=== PATIENT | female | born 1990 | race Caucasian/White ===

== ENCOUNTER → 2019-02-23 | Outpatient (CLI) | payer OTHER | END | disposition home or self-care (01) | LOC: LAB 18:49 → LAB SHORT 18:49 | DX: Z34.00 Encounter for supervision of normal first pregnancy, unspecified trimester (principal) | CPT/HCPCS: 87081; 87653 ==

== ENCOUNTER 2019-03-23 05:08 | Inpatient (IN) | payer OTHER, BC ==
[~2019-03-23] VITALS: Ht 160 cm; Wt 0.2 kg
[2019-03-23] MEDS ORDERED: Verotin-Gr Cap1 EACH PO (05:32)
[2019-03-23 05:45] LABS: BASOPHILS ABSOLUTE AUTO 0.03 K/mm3 (0.00-0.23); BASOPHILS PERCENT AUTO 0 % (0-2); EOSINOPHILS ABSOLUTE AUTO 0.08 K/mm3 (0.00-0.68); EOSINOPHILS PERCENT AUTO 1 % (0-6); Hematocrit 37.8 % (33.0-51.0); Hemoglobin 12.4 g/dL (11.5-16.0); IMMATURE GRAN ABSOLUTE AUTO 0.08 K/mm3 (0.00-0.10); IMMATURE GRAN PERCENT AUTO 1 % (0-1); LYMPHOCYTES ABSOLUTE AUTO 2.37 K/mm3 (0.84-5.20); LYMPHOCYTES PERCENT AUTO 25 % (21-46); MONOCYTES ABSOLUTE AUTO 0.89 K/mm3 (0.16-1.47); MONOCYTES PERCENT AUTO 10 % (4-13); Mean Corpuscular HGB Conc 32.8 g/dL (31.5-36.5); Mean Corpuscular Volume 92 fL (80-100); Mean Platelet Volume 11.3 fL (9.1-12.4); NEUTROPHILS ABSOLUTE AUTO 5.88 K/mm3 (1.96-9.15); NEUTROPHILS PERCENT AUTO 63 % (41-73); Platelet Count 188 K/mm3 (150-400); RDW Coefficient Variation 12.8 % (11.7-14.2); RDW Standard Deviation 41.6 fL (35.1-46.3); Red Blood Cell Count 4.13 M/mm3 (3.80-5.20); White Blood Cell Count 9.33 K/mm3 (4.00-11.30)
--- NOTE | 2019-03-23 16:34 | NUR ---
EPIDURAL OFF, TOTAL 41.1 DELIVERED, 208 LTC FF AT [facility], DR REED DONE WITH REPAIR, SCANT BLEEDING
--- NOTE | 2019-03-23 16:52 | NUR ---
PT. GAVE PRINT SHOP ASSISTANT PERMISSION TO PROVIDE CARE FOR THE DAY.
--- NOTE | 2019-03-23 17:56 | NUR ---
CONSULT OF . HAVING DIFFICULTY WITH FIRST LATCHING AFTER . ALERT AND ROOTING. MOMS BREASTS ARE FIRM BUT NIPPLE DOES ERECT SOME WITH STIMULATION. VERY SMALL DROP OF COLOSTRUM EXPRESSED. MOUTH OF BABY EVALUATED, POOR SUCK COORDINATION, PROMINENT BITING, POSTERIOR TONGUE ELEVATED, HOLDS MOUTH NARROW BUT IS ABLE TO WIDE OPEN WITH ROOTING. BRIEFLY COORDINATES SUCK WHEN MOUTH MORE OPEN, THEN JAW QUIVERS AND SHE RETURNS TO BITING. INSTRUCT/DEMO USE OF SHIELD, ADJUSTING LATCH, AND STIMULATING BABY TO SUCK. UNABLE TO OBTAIN A DIRECT LATCH. BABY IS TRYING TO SUCK ON SHIELD FOR VERY SHORT BURSTS, LAYED BACK POSITION. BOTH PARENTS ATTENTIVE TO TEACHING, LOVING WITH BABY. INSTRUCT IN CHANGES TO EXPECT WITH BABY DURING THE FIRST WEEK AND WITH FEEDINGS AND REFERRED TO [facility] FOR PHOTOS AND INFORMATION. INSTRUCT IN SKIN TO SKIN TIME TO INCREASE HER INTEREST IN FEEDING. QUESTIONS ANSWERED.
[2019-03-24 06:05] LABS: Hematocrit 30.4 % (33.0-51.0); Mean Corpuscular HGB 29.9 pg (26.0-34.0); Mean Corpuscular HGB Conc 32.9 g/dL (31.5-36.5); Mean Corpuscular Volume 91 fL (80-100); Mean Platelet Volume 10.7 fL (9.1-12.4); Platelet Count 150 K/mm3 (150-400); RDW Standard Deviation 41.9 fL (35.1-46.3); Red Blood Cell Count 3.34 M/mm3 (3.80-5.20); White Blood Cell Count 9.62 K/mm3 (4.00-11.30)
--- NOTE | 2019-03-24 07:10 | NUR ---
pt is awake holding baby, encouraged to call when baby ready to feed. reports will try again, gave a bottle last pm was so tired. denies needing anything, fob sleeping, baby sleeping in moms arms, mom awake sitting up with TV light staring at baby. will be back to do assessment
--- NOTE | 2019-03-24 17:36 | NUR ---
pt was medicated with motrin and encouraged to sleep, pt was overwhelmed with information from consult and unsure what to do. pt to sleep, to skip this pumping, have 5cc colstrum in fridge and will start pumping after mom wakes up from nap
[2019-03-24] MEDS ORDERED: IBUP800 PO (18:08)
--- NOTE | 2019-03-24 21:58 | NUR ---
RN REVIEWED DISCHARGE INSTRUCTIONS WITH PT AND ANSWERED ALL QUESTIONS. PT VERBALIZED UNDERSTANDING AND DENIED ANY FURTHER QUESTIONS/CONCERNS. PRESCRIPTIONS GIVEN TO PT BY PREVIOUS SHIFT.
--- NOTE | 2019-03-25 10:08 | NUR ---
FOLLOW UP CONSULT BEFORE DISCHARGING HOME WITH BABY. MOM IS COORDINATING HER SUCK BEFORE PUTTING HER TO BREAST WITH SHIELD AND SNS WITH EBM OR FORMULA. MORE SUCKING AND LESS BITING TODAY. MOM IS PUMPING FOR ADDED STIMULATION. PLAN IS TO CONTINUE WITH 10-15CC OF SUPPLEMENT WITH EACH BF UNTIL HER MILK COMES IN, THEN STOP SUPPLEMENT, ESPECIALLY HER SUCKING STRENGTH INCREASES. BOTH PARENTS ATTENTIVE TO TEACHING AND FEEL THEY CAN FOLLOW THIS PLAN. WILL ASSESS BABY'S MOUTH TOMORROW AT PPFU VISIT. SHE IS CURRENTLY ASLEEP IN DADS ARMS. QUESTIONS ANSWERED.
== END 2019-03-24 22:14 | disposition home or self-care (01) | DRG 807 ==
LOC: BC 05:08
PROVIDERS: ADMIT Obstetrics & Gynecology
PROC: 3E033VJ Introduction of Other Hormone into Peripheral Vein, Percutaneous Approach (ICD-10-PCS; principal; 2019-03-23)
PROC: 10E0XZZ Delivery of Products of Conception, External Approach (ICD-10-PCS; 2019-03-23)
PROC: 0KQM0ZZ Repair Perineum Muscle, Open Approach (ICD-10-PCS; 2019-03-23)
PROC: 10907ZC Drainage of Amniotic Fluid, Therapeutic from Products of Conception, Via Natural or Artificial Opening (ICD-10-PCS; 2019-03-23)
PROC: 3E0R3BZ Introduction of Anesthetic Agent into Spinal Canal, Percutaneous Approach (ICD-10-PCS; 2019-03-23)
PROC: 00HU33Z Insertion of Infusion Device into Spinal Canal, Percutaneous Approach (ICD-10-PCS; 2019-03-23)
PROC: 6A550ZT Pheresis of Cord Blood Stem Cells, Single (ICD-10-PCS; 2019-03-23)
DX: O70.1 Second degree perineal laceration during delivery (principal); Z37.0 Single live birth; Z3A.40 40 weeks gestation of pregnancy
CPT/HCPCS: 36415; 51702; 85025; 85027; J1885; J2590; J3010; J7120

== ENCOUNTER → 2022-05-21 | Outpatient (CLI) | payer BC ==
[~2022-05-21] MED LIST: IBUP800 PO; Verotin-Gr Cap1 EACH PO
== END | disposition home or self-care (01) ==
LOC: LAB 09:40 → LAB SHORT 09:40
DX: Z34.83 Encounter for supervision of other normal pregnancy, third trimester (principal)
CPT/HCPCS: 87081; 87150

== ENCOUNTER 2022-06-18 04:50 | Inpatient (IN) | payer BC ==
[~2022-06-18] VITALS: Ht 160 cm; Wt 74.1 kg
[2022-06-18] MEDS ORDERED: FAMO10 PO (05:33)
[2022-06-18 05:45] LABS: BASOPHILS ABSOLUTE AUTO 0.03 K/mm3 (0.00-0.23); BASOPHILS PERCENT AUTO 0 % (0-2); EOSINOPHILS ABSOLUTE AUTO 0.09 K/mm3 (0.00-0.68); EOSINOPHILS PERCENT AUTO 1 % (0-6); IMMATURE GRAN ABSOLUTE AUTO 0.09 K/mm3 (0.00-0.10); IMMATURE GRAN PERCENT AUTO 1 % (0-1); LYMPHOCYTES ABSOLUTE AUTO 2.43 K/mm3 (0.84-5.20); LYMPHOCYTES PERCENT AUTO 23 % (21-46); MONOCYTES ABSOLUTE AUTO 0.85 K/mm3 (0.16-1.47); MONOCYTES PERCENT AUTO 8 % (4-13); Mean Corpuscular HGB 30.2 pg (26.0-34.0); Mean Corpuscular HGB Conc 34.2 g/dL (31.5-36.5); Mean Corpuscular Volume 88 fL (80-100); Mean Platelet Volume 10.8 fL (9.1-12.4); NEUTROPHILS ABSOLUTE AUTO 7.03 K/mm3 (1.96-9.15); NEUTROPHILS PERCENT AUTO 67 % (41-73); Platelet Count 184 K/mm3 (150-400); RDW Coefficient Variation 12.8 % (11.7-14.2); RDW Standard Deviation 41.5 fL (35.1-46.3); Red Blood Cell Count 4.31 M/mm3 (3.80-5.20); White Blood Cell Count 10.52 K/mm3 (4.00-11.30)
--- NOTE | 2022-06-18 11:39 | NUR ---
agree with labor assessment, preceptoring shahram to labor, hholcomb rnc
--- NOTE | 2022-06-19 10:55 | NUR ---
DC HOME, AMBULATE OUT WITH NO PROBLEMS, PT AWARE CAN TAKE OVER THE COUNTER PAIN MEDS NEEDED OR CALL DR REED IF OVER THE COUNTER ISNT WORKING. HAS PPFU FOR FRIDAY, WELL WITH NIPPLE SHIELD.
== END 2022-06-19 10:55 | disposition home or self-care (01) | DRG 807 ==
LOC: OBS 04:50 → BC 05:09
PROVIDERS: ADMIT Obstetrics & Gynecology
PROC: 10E0XZZ Delivery of Products of Conception, External Approach (ICD-10-PCS; principal; 2022-06-18)
PROC: 10907ZC Drainage of Amniotic Fluid, Therapeutic from Products of Conception, Via Natural or Artificial Opening (ICD-10-PCS; 2022-06-18)
PROC: 0HQ9XZZ Repair Perineum Skin, External Approach (ICD-10-PCS; 2022-06-18)
PROC: 3E033VJ Introduction of Other Hormone into Peripheral Vein, Percutaneous Approach (ICD-10-PCS; 2022-06-18)
DX: O99.62 Diseases of the digestive system complicating childbirth (principal); Z37.0 Single live birth; K21.9 Gastro-esophageal reflux disease without esophagitis; Z3A.39 39 weeks gestation of pregnancy; Z67.40 Type O blood, Rh positive; O69.81X0 Labor and delivery complicated by cord around neck, without compression, not applicable or unspecified; O70.0 First degree perineal laceration during delivery; Z88.0 Allergy status to penicillin; Z88.6 Allergy status to analgesic agent; Z88.8 Allergy status to other drugs, medicaments and biological substances; Z91.018 Allergy to other foods; Z79.899 Other long term (current) drug therapy
CPT/HCPCS: 36415; 85025; 86850; 86900; 86901; A9270; J1885; J2405; J2590; J3010; J7120

== ENCOUNTER → 2024-07-29 | Outpatient (CLI) | payer BC ==
[~2024-07-29] MED LIST changes: +FAMO10 PO
[2024-08-05 15:01] LABS: HPV HIGH RISK BY TMA Not Detected; HPV SOURCE Cervical/Vag
== END ==
LOC: LAB 13:09 → LAB SHORT 13:09
PROVIDERS: Obstetrics & Gynecology
DX: Z01.419 Encounter for gynecological examination (general) (routine) without abnormal findings (principal)
CPT/HCPCS: 87624; G0123